=== PATIENT | female | born 1965 | race American Indian/Alaskan Native ===

== ENCOUNTER 2019-09-27 11:19 | Emergency (ER) | payer SELFPAY ==
[2019-09-27 13:18] LABS: Basophils % (Auto) 0.5 % (0.0-1.8); Eosinophils % (Auto) 0.3 % (0.0-4.3); Hematocrit 40.7 % (30.3-42.9); Hemoglobin 13.6 gm/dl (10.1-14.3); Lymphocytes # (Auto) 1.5 K/mm3 (1.2-5.4); Lymphocytes % (Auto) 19.1 % (13.4-35.0); Mean Corpuscular HGB Conc 33 % (30-34); Mean Corpuscular Volume 95 fl (79-97); Monocytes # (Auto) 0.4 K/mm3 (0.0-0.8); Platelet Count 294 K/mm3 (140-440); Red Blood Count 4.28 M/mm3 (3.65-5.03); Red Cell Distribution Width 14.1 % (13.2-15.2)
[2019-09-27 13:26] LABS: Amphetamine Screen,Urine PRESUMPTIVE NEGATIVE; Benzodiazepines Screen,Urine PRESUMPTIVE NEGATIVE; Cocaine Screen,Urine PRESUMPTIVE NEGATIVE; Methadone Screen,Urine PRESUMPTIVE NEGATIVE; Opiate Screen,Urine PRESUMPTIVE NEGATIVE
[2019-09-27 13:39] LABS: BUN/Creatinine Ratio 18; Blood Urea Nitrogen 9 mg/dL (7-17); Calcium 9.6 mg/dL (8.4-10.2); Hemolysis Index 11
[2019-09-27 13:39] LABS: Cannabinoid Screen,Urine PRESUMPTIVE POSITIVE
[2019-09-27 13:50] LABS: Bilirubin,Urine NEG (Negative); Blood,Urine SM (Negative); Color,Urine Yellow (Yellow); Protein,Urine <15 mg/dL mg/dL (Negative); Urobilinogen,Urine < 2.0 mg/dL (<2.0)
[2019-09-27 14:10] LABS: Bacteria,Urine 2+ /HPF (Negative); Mucus,Urine 3+ /HPF
--- NOTE | 2019-09-27 14:40 | Emergency Department Report ---
<FEI LEYVA - Last Filed: 09/28/19 22:38> ED Psych HPI - General Chief Complaint: Psych Stated Complaint: SI Time Seen by Provider: 09/27/19 12:27 - Related Data Allergies Allergy/AdvReac Type Severity Reaction Status Date / Time No Known Allergies Allergy Unverified 09/27/19 12:09 ED Medical Decision Making - Lab Data Result diagrams: 09/27/19 13:05 09/27/19 13:05 - Medical Decision Making Upon discussion without psychiatric team, 1013 recommended 1013 voluntary hold ordered and arranged. ED Disposition Clinical Impression: Suicidal ideation Disposition: [id number]/TX-65 PSY HOSP/PSY UNIT Is pt being admited?: No Does the pt Need Aspirin: No Condition: Stable <JEAN MARIECHRISTY - Last Filed: 10/01/19 22:41> ED Psych HPI - General Source: patient, EMS Mode of arrival: Ambulatory - History of Present Illness Initial Comments: 54-year-old female with history of bipolar disorder, schizophrenia, PTSD, presents to ED with complaint of suicidal ideation. Patient states she has no plan. She states in the past she has either taken pills or "used a knife." Patient reports auditory hallucinations, states she hears "somebody humming coming from the vents." Patient denies any homicidal ideation. Patient states she is been off her psychiatric medications for a while. Patient denies any alcohol or drug abuse. MD Complaint: suicidal ideation -: unknown Associated Psychiatric Symptoms: suicidal ideation, auditory hallucinations History of same: Yes Quality: constant Improves With: medication Context: not taking psychiatric Associated Symptoms: denies other symptoms Treatments Prior to Arrival: none If Self Harm: admits thoughts of ED Review of Systems ROS: Stated complaint: SI Other details as noted in HPI Comment: All other systems reviewed and negative Psychiatric: auditory hallucinations, suicidal thoughts ED Past Medical Hx - Past Medical History Hx Psychiatric Treatment: Yes (bipolar, PTSD [facility] MULTIPLE SI ATTEMPT) - Surgical History Past Surgical History?: No ED Physical Exam - General Limitations: No Limitations General appearance: alert, in no apparent distress - Head Head exam: Present: atraumatic, normocephalic - Eye Eye exam: Present: normal appearance, EOMI - ENT ENT exam: Present: mucous membranes moist - Neck Neck exam: Present: normal inspection - Respiratory Respiratory exam: Present: normal lung sounds bilaterally. Absent: respiratory distress - Cardiovascular Cardiovascular Exam: Present: regular rate, normal rhythm - GI/Abdominal GI/Abdominal exam: Absent: distended - Extremities Exam Extremities exam: Present: normal inspection - Neurological Exam Neurological exam: Present: alert, oriented X3 - Psychiatric Psychiatric exam: Present: suicidal ideation - Skin Skin exam: Present: warm, dry, intact, normal color ED Course Vital Signs 09/27/19 09/27/19 09/27/19 12:38 12:47 19:35 Temperature 98.2 F 98.2 F 98.5 F Pulse Rate 85 79 81 Respiratory 20 20 18 Rate Blood Pressure 119/80 Blood Pressure 119/80 94/48 [Left] O2 Sat by Pulse 92 95 96 Oximetry 09/27/19 09/28/19 09/28/19 22:15 04:25 07:23 Temperature 98.4 F 98.9 F Pulse Rate 79 75 66 Respiratory 18 18 16 Rate Blood Pressure Blood Pressure 91/59 93/57 100/67 [Left] O2 Sat by Pulse 96 96 99 Oximetry 09/28/19 09/28/19 09/29/19 13:42 20:35 01:15 Temperature 98.9 F 97.6 F 97.9 F Pulse Rate 71 73 75 Respiratory 16 18 18 Rate Blood Pressure Blood Pressure 93/55 99/57 101/60 [Left] O2 Sat by Pulse 99 100 100 Oximetry 09/29/19 09/29/19 09/29/19 08:16 12:48 19:41 Temperature 98.3 F 98.4 F 98.8 F Pulse Rate 77 63 83 Respiratory 16 16 18 Rate Blood Pressure 84/48 76/48 Blood Pressure 122/66 [Left] O2 Sat by Pulse 97 98 97 Oximetry 09/30/19 09/30/19 02:14 08:02 Temperature 98.4 F 99 F Pulse Rate 72 84 Respiratory 16 18 Rate Blood Pressure Blood Pressure 79/50 97/57 [Left] O2 Sat by Pulse 100 100 Oximetry ED Medical Decision Making - Lab Data Result diagrams: 09/27/19 13:05 09/27/19 13:05 Critical care attestation.: If time is entered above; I have spent that time in minutes in the direct care of this critically ill patient, excluding procedure time. ED Disposition Is pt being admited?: No
[2019-09-27] MEDS: SULFAMETHOXAZOLE/TRIMETHOPRIM 800/160MG DS TAB PO SCH (22:15)
[2019-09-28] MEDS: SULFAMETHOXAZOLE/TRIMETHOPRIM 800/160MG DS TAB PO SCH ×2 (10:16→23:05)
--- NOTE | 2019-09-28 15:44 | Consultation ---
History of Present Illness - Reason for Consult Consult date: 09/28/19 Reason for consult: SI - Chief Complaint Chief complaint: Suicidal, don't remember where I am - History of Present Psychiatric Illness Ginger Smith is a 54y/o female patient who is said to have presented to the ER with suicidal ideation. The patient is awake. a/o x 3. She is dressed appropriately. She makes fair eye contact. She is evasive and uncooperative. When asked what brought her to the hospital, she replied "I didn't remember where I was, suicidal, a whole lot of stuff." The patient then says, "I know where I am now but I thought I was in another place. I'm from [place]." She asked me where was she going. Informed the patient that I had to complete the interview to get an understanding of what's going on with her. She replied, "If I go home I feel like something is going to happen." When asked patient to elaborate on how she was feeling, she ended the interview, stating, "I don't feel like talking anymore." PAST PSYCHIATRIC HISTORY: Refused to answer REVIEW OF SYSTEMS Did not obtain. The patient ended interview abruptly. PAST MEDICAL HISTORY: none stated Family Psychiatric History None reported or documented SOCIAL HISTORY Refused to answer MSE Appearance: In bed. Appropriate clothing. Fair eye contact. Behavior: Irritable, uncooperative. Evasive Mood: Irritable Affect: Restricted Thought Process: Goal directed Speech: Normal tone and pace Thought Content Harmfulness: Suicidal Hallucinations: did not obtain info Delusions: none elicited Consciousness: Alert Cognition/Memory: Limited Insight/Judgment: Limited Assessment: Bipolar, Current Episode Depressed, Severe w/Psychotic Features Treatment Plan Continue 1013 Medications: -Risperidone 0.25mg po BID to decrease aggression and irritability. To decrease hallucinations. -Doxepin 10mg po qhs to induce sleep -Melatonin 5mg po qhs prn to promote rest -Geodon 10mg IM q4h prn agitation Sitter: Defer to primary Medical: Per primary Disposition: The patient meets the requirement for acute inpatient hospitalization. Please transfer to acute facility when medically stable. Will continue to follow until the patient is transferred Please call for any questions or concerns. Thank you for this consult. Medications and Allergies Allergies Allergy/AdvReac Type Severity Reaction Status Date / Time No Known Allergies Allergy Unverified 09/27/19 12:09 Active Meds: Active Medications Trimethoprim/Sulfamethoxazole (Bactrim Ds) 1 each PO Q12HR ZACH Stop: 09/30/19 10:01 Last Admin: 09/28/19 10:16 Dose: 1 each Documented by: Mental Status Exam - Vital signs Last Vital Signs Temp 98.9 F 09/28/19 13:42 Pulse 71 09/28/19 13:42 Resp 16 09/28/19 13:42 BP 93/55 09/28/19 13:42 Pulse Ox 99 09/28/19 13:42 Results Result Diagrams: 09/27/19 13:05 09/27/19 13:05 All other labs normal.
[2019-09-28] MEDS ORDERED: MELATONIN 5 MG TAB PO PRN (16:02)
[2019-09-28] MEDS ORDERED: ZIPRASIDONE MESYLATE 20 MG VIAL IM PRN (16:03)
[2019-09-28] MEDS ORDERED: DOXEPIN 10 MG CAP PO SCH (22:00)
[2019-09-28] MEDS: risperiDONE 0.25 MG TAB PO SCH (23:05)
[2019-09-29] MEDS: SULFAMETHOXAZOLE/TRIMETHOPRIM 800/160MG DS TAB PO SCH (10:46)
[2019-09-29] MEDS: risperiDONE 0.25 MG TAB PO SCH ×2 (10:46→14:12)
--- NOTE | 2019-09-29 11:45 | Progress Note ---
Subjective - Reason for Consult Consult date: 09/29/19 Reason for consult: manage mental health - Chief Complaint Chief complaint: During my interview this morning, the patient was standing at the sink washing up with the door open. She had her shirt off. She says they told her she couldn't close the door. The patient makes fair eye contact. She's impulsive, and seems quite hyper. She starts wiping down the sink, and then starts pacing. She seems to have involuntary facial movements. The patient says, "I need a safety plan to see where I go next." When asked what was her fear, she replied, "I'm just unsure. I don't know." She says, "I don't know how yall do things over here. But people tell me hi and keep it moving." She then says, "I know I didn't want to talk to you yesterday, but I'm not talking about you." She says "this is boring to me." She denies SI/HI, stating, "no, I never was." She denies hallucinations of any kind. She verbalizes being "anxious" and states "I don't know what's gone happen five minutes from now, cause when I get like this." She says her sleep is "up and down." The patient says her appetite is "not good at all." REVIEW OF SYSTEMS Constitutional: Negative for weight loss ENT: Negative for stridor Respiratory: Negative for cough All other systems reviewed and are negative MSE Appearance: Standing at sink. Shirt and bra off Behavior: Impulsive, hyper Mood: anxious Affect: Restricted Thought Process: Goal directed Speech: Normal tone and pace Thought Content Harmfulness: Denies Hallucinations: Denies Delusions: fear, but can't explain why Consciousness: Alert Cognition/Memory: Limited Insight/Judgment: Limited Assessment: Bipolar, Current Episode Depressed, Severe w/Psychotic Features Treatment Plan Continue 1013 Medications: -Increased Risperidone 0.5mg po BID to decrease aggression and irritability. -Increased Doxepin 25mg po qhs to improve sleep and decrease anxiety -Start Depakote DR 125mg po BID to improve mood -Start Cogentin 0.5mg po daily to help with involuntary facial movements Sitter: Defer to primary Medical: Per primary Disposition: The patient meets the requirement for acute inpatient hospitalization. Please transfer to acute facility when medically stable. Will continue to follow until the patient is transferred Explained the medications, benefits and side effects, and treatment plan was discussed with the patient. She verbalizes understanding and agreement. Please call for any questions or concerns. Mental Status Exam - Vital signs Last Vital Signs Temp 98.3 F 09/29/19 08:16 Pulse 77 09/29/19 08:16 Resp 16 09/29/19 08:16 BP 84/48 09/29/19 08:16 Pulse Ox 97 09/29/19 08:16
[2019-09-29] MEDS ORDERED: WATER FOR INJ Sterile (PF) 10 ML ONE (14:55)
[2019-09-29] MEDS ORDERED: DOXEPIN 25 MG CAP PO SCH (22:00)
[2019-09-30] MEDS: SULFAMETHOXAZOLE/TRIMETHOPRIM 800/160MG DS TAB PO SCH ×2 (00:30→10:29)
[2019-09-30] MEDS: risperiDONE 0.25 MG TAB PO SCH ×2 (00:30→10:29)
[2019-09-30] MEDS: DIVALPROEX DR 125 MG TAB PO SCH ×2 (00:30→10:29)
[2019-09-30 08:03] VITALS: BP 97/57
== END 2019-09-30 13:17 ==
LOC: ED 11:19 → EEVIPCON 11:19 → ED 09-30 13:17
DX: F31.9 Bipolar disorder, unspecified (principal); F43.10 Post-traumatic stress disorder, unspecified; F25.9 Schizoaffective disorder, unspecified
CPT/HCPCS: 36415; 80048; 80307; 81001; 85025; 99285; J3486; 80320; G0480